=== PATIENT | female | born 1955 | race African-American/Black ===

== ENCOUNTER 2019-03-14 06:55 | Inpatient (IN) | payer MEDICARE, MEDICAID ==
[2019-03-14] MEDS ORDERED: Fentanyl 100 MCG/2 ML VIAL ONE (07:10)
[2019-03-14] MEDS ORDERED: Midazolam HCl 2 mg/2 ml Vial ONE (07:10)
[2019-03-14] MEDS ORDERED: Bivalirudin 250 MG VIAL ONE (07:16)
[2019-03-14] MEDS ORDERED: Clopidogrel Bisulfate 300 MG TAB ONE ×2 (07:21)
[2019-03-14] MEDS ORDERED: Heparin 10,000 UNITS/1 ML VIAL ONE (07:25)
[2019-03-14] MEDS ORDERED: Nitroglycerin 0.4 MG TAB (25 Tab Bottle) SL PRN (08:03)
[2019-03-14] MEDS ORDERED: Milk Of Magnesia 30 ML UDCUP PO PRN (08:03)
[2019-03-14] MEDS ORDERED: cloNIDine 0.1 MG TAB PO PRN (08:03)
[2019-03-14] MEDS ORDERED: Mag-Al 1200 mg/1200 mg/30 ML UDCUP PO PRN (08:03)
[2019-03-14] MEDS ORDERED: Morphine 2 MG/ML SYRINGE SLOW IVP PRN (08:03)
[2019-03-14] MEDS ORDERED: ALPRAZolam 0.25 MG TAB PO PRN (08:05)
[2019-03-14] MEDS ORDERED: Sodium Chloride 0.9% 1,000 ML IV SCH (08:15)
[2019-03-14] MEDS ORDERED: Prevnar 13-Val Conj/PF 0.5 ML SYRINGE IM ONE (09:00)
[2019-03-14 09:02] LABS: Hemoglobin A1c 5.7 % (4.0-6.0)
[2019-03-14 09:14] LABS: Cardiac Risk 5.1 (Less than 4.5)
[2019-03-14] MEDS: Aspirin Chewable 81 MG TAB PO SCH (09:48)
[2019-03-14] MEDS: Clopidogrel Bisulfate 75 MG TAB PO SCH (09:49)
--- NOTE | 2019-03-14 09:58 | HP ---
HISTORY: Maris kearns is a 64-year-old black female without previous cardiac problems. She got up to go the bathroom this morning, at 4 in the morning, and began to have crushing substernal chest pressure associated with nausea and mild diaphoresis, but no shortness of breath or vomiting. She ultimately went to the emergency room in [place] and was found to have changes consistent with inferoposterior myocardial infarction. She was given aspirin, heparin, and transferred. She continues to have chest discomfort. PAST MEDICAL HISTORY: Hypertension and hypercholesterolemia. She denies any history of diabetes. MEDICATIONS: Unknown, but she takes a blood pressure and cholesterol medicine. ALLERGIES: NONE. OPERATIONS: Back surgery. SOCIAL HISTORY: She smokes 5 to 6 cigarettes per day. She does not drink. FAMILY HISTORY: Positive for coronary artery disease. REVIEW OF SYSTEMS: Otherwise unremarkable. PHYSICAL EXAMINATION: VITAL SIGNS: Blood pressure of 130/80, pulse of 88. HEENT: PERRL. NECK: Supple. CHEST: Clear. CARDIAC: S1 and S2 normal without any S3, S4, or murmurs. Carotid upstrokes are normal without bruits. ABDOMEN: Normal bowel sounds without tenderness or organomegaly. EXTREMITIES: Revealed no clubbing, cyanosis, or edema. NEUROLOGIC: Grossly intact. IMAGING STUDIES: EKG findings consistent with inferoposterior infarction. LABORATORY DATA: Lab work from [place] revealed white count of 11,100, hemoglobin 12.9, hematocrit 41.2, platelets 233. Sodium 141, potassium 3.4, chloride 103, carbon dioxide 23, BUN 20, creatinine 1.06, glucose 172. Troponin I 0.033, MB 1.2. It is of note that in December 2017, she had an LDL of 155, cholesterol of 248, and triglycerides of 308. ASSESSMENT: 1. Inferoposterior ST-segment elevation myocardial infarction. 2. Hypertension. 3. Hypercholesterolemia. 4. Elevated blood sugar. 5. Smoker. 6. Positive family history. PLAN: Situation is discussed with the patient. It was recommended that she undergo emergent catheterization. Risks were discussed including , myocardial infarction, dye reaction, vascular injury, CVA, transfusion, limb loss, renal loss, etc. Risks of stent placement were discussed including , myocardial infarction, emergent CABG, restenosis, stent thrombosis, vessel perforation, etc. She has no history of gastrointestinal bleeding or CVA. She does not have any upcoming surgical procedures planned. It is recommended that a drug-eluting stent would be placed if required. Job ID: [id number] MTDD
--- NOTE | 2019-03-14 09:59 | RAD ---
PORTABLE CHEST: HISTORY: Chest pain. COMPARISON: A 03/14/2019 study. FINDINGS: Heart size and mediastinum are within normal limits. The lungs are clear of infiltrates. No signifi cant bony findings. IMPRESSION: No active intrathoracic disease. POS: [facility]
[2019-03-14] MEDS ORDERED: Iopamidol 370 76% 100 ML VIAL ONE (12:37)
[2019-03-14 13:48] LABS: CKMB 164.2 ng/mL (0-6.6)
[2019-03-14 19:27] LABS: CKMB 105.4 ng/mL (0-6.6); Critical Call CKMB RESULT DECREASING
[2019-03-14] MEDS: Atorvastatin Calcium 40 MG TAB PO SCH (20:09)
[2019-03-14] MEDS ORDERED: Atorvastatin Calcium 40 MG TAB PO SCH (21:00)
[2019-03-14] MEDS ORDERED: Ondansetron PF 4 MG/2 ML Vial IVP PRN (22:30)
[2019-03-15 04:06] LABS: CKMB 68.9 ng/mL (0-6.6)
[2019-03-15 04:55] LABS: #Lymphocytes 2.9 thou/uL (1.20-3.40); #Neutrophils 8.4 thou/uL (1.40-6.50); %Basophils 0.2 % (0.0-1.0); %Eosinophils 0.2 % (0.0-10.0); %Lymphocytes 23.6 % (21.0-51.0); %Monocytes 7.9 % (0.0-10.0); %Neutrophils 68.2 % (42.0-75.0); Hemoglobin 11.6 g/dL (12.0-16.0); Mean Corpuscular HGB CONC 32.3 g/dL (32.0-36.0); Mean Corpuscular Hemoglobin 30.2 pg (27.0-31.0); Mean Corpuscular Volume 93.5 fL (78.0-98.0); Mean Platelet Volume 8.8 fL (7.4-10.4); Platelet Count 197 thou/uL (130-400); RBC Distribution Width 12.8 % (11.5-14.5); Red Blood Cell (RBC) Count 3.82 mill/uL (4.20-5.40); White Blood Cell (WBC) Count 12.2 thou/uL (4.8-10.8)
[2019-03-15 05:13] LABS: ALT (SGPT) 36 U/L (8-55); AST (SGOT) 138 U/L (5-34); Albumin 3.9 g/dL (3.4-4.8); Alkaline Phosphatase 96 U/L (40-150); Anion Gap 12 mmol/L (10-20); BUN (Urea Nitrogen) 18 mg/dL (9.8-20.1); Bilirubin, Total 0.6 mg/dL (0.2-1.2); Calc. Creatinine Clearance 106 mL/min (70-130); Calcium 9.4 mg/dL (7.8-10.44); Carbon Dioxide 26 mmol/L (23-31); Chloride 103 mmol/L (98-107); Estimated GFR-MDRD 83; Globulin 2.8 g/dL (2.4-3.5); Glucose 116 mg/dL (80-115); Potassium 3.8 mmol/L (3.5-5.1); Protein, Total 6.7 g/dL (6.0-8.3); Sodium 137 mmol/L (136-145)
[2019-03-15] MEDS: Ezetimibe 10 MG TAB PO SCH (08:13)
[2019-03-15] MEDS: Aspirin Chewable 81 MG TAB PO SCH (08:13)
[2019-03-15] MEDS: Clopidogrel Bisulfate 75 MG TAB PO SCH (08:13)
[2019-03-15] MEDS: Atorvastatin Calcium 40 MG TAB PO SCH (20:47)
[2019-03-15] MEDS: Metoprolol Tartrate 25 MG TAB PO SCH (20:48)
[2019-03-16] MEDS: Clopidogrel Bisulfate 75 MG TAB PO SCH (09:43)
[2019-03-16] MEDS: Metoprolol Tartrate 25 MG TAB PO SCH ×2 (09:43→20:37)
[2019-03-16] MEDS: Ezetimibe 10 MG TAB PO SCH (09:44)
[2019-03-16] MEDS: Aspirin Chewable 81 MG TAB PO SCH (09:44)
--- NOTE | 2019-03-16 11:44 | EKG ---
Test Reason : Blood Pressure : / mmHG Vent. Rate : 082 BPM Atrial Rate : 082 BPM P-R Int : 168 ms QRS Dur : 104 ms QT Int : 396 ms P-R-T Axes : 061 008 -41 degrees QTc Int : 462 ms Normal sinus rhythm Low voltage QRS Abnormal ECG When compared with ECG of 30-OCT-1995 11:10, ST now depressed in Inferior leads ST now depressed in Anterior leads Confirmed by DR. Aly MONTE ([id number]) on 03/16/2019 11:44:23 AM Referred By: PERCY Confirmed By:DR. Aly MONTE
--- NOTE | 2019-03-16 11:49 | EKG ---
Test Reason : ROUTINE Blood Pressure : / mmHG Vent. Rate : 078 BPM Atrial Rate : 078 BPM P-R Int : 138 ms QRS Dur : 088 ms QT Int : 412 ms P-R-T Axes : 019 059 098 degrees QTc Int : 469 ms Normal sinus rhythm Low voltage QRS Abnormal ECG Confirmed by DR. Aly MONTE (3) on 03/16/2019 11:49:05 AM Referred By: SELMA GREER Confirmed By:DR. Aly MONTE
[2019-03-16 14:27] VITALS: BMI 36.3
[2019-03-16] MEDS: Atorvastatin Calcium 40 MG TAB PO SCH (20:37)
[2019-03-17 07:29] VITALS: BP 124/77; TEMP 98.5
[2019-03-17] MEDS: Clopidogrel Bisulfate 75 MG TAB PO SCH (09:18)
[2019-03-17] MEDS: Ezetimibe 10 MG TAB PO SCH (09:18)
[2019-03-17] MEDS: Aspirin Chewable 81 MG TAB PO SCH (09:19)
--- NOTE | 2019-03-17 11:11 | DIS ---
DATE OF ADMISSION: 03/14/2019 DATE OF DISCHARGE: 03/17/2019 DISCHARGE DIAGNOSES: 1. Inferoposterior ST-segment elevation myocardial infarction with troponin I of 124.473, MB 164.2. 2. Placement of drug-eluting stent in the proximal circumflex. 3. Three-vessel coronary artery disease for medical treatment. 4. Ejection fraction of 40% to 45%, consider repeat echo in 3 months. 5. Hypertension. 6. Hypercholesterolemia. 7. Smoker. 8. Positive family history. DISCHARGE MEDICATIONS: 1. Ecotrin 81 mg q.a.m. 2. Plavix 75 mg q.a.m. x1 year. 3. Atorvastatin 80 mg daily. 4. Zetia 10 mg daily. 5. Metoprolol ER 25 mg q.a.m. 6. Nitroglycerin p.r.n. DISCHARGE DISPOSITION: The patient to be seen in one month with complete metabolic panel and fasting lipid profile being obtained. She was instructed on a daily basis that she should never smoke again or use any nicotine and also was instructed a low-cholesterol diet. HOSPITAL COURSE: Ms. Nunn awoke on the morning of admission 4 a.m. to go the bathroom and began to have crushing substernal chest pressure associated with nausea and mild diaphoresis. She went to the emergency room in [place], was found to have changes consistent with inferoposterior STEMI. She was transferred here and taken to the manager cath lab emergently. This revealed 50% proximal LAD, 50% distal LAD, total occlusion of the proximal circumflex and 50% mid RCA lesion. She underwent placement of Synergy drug-eluting stent 3.0 x 20 mm stent in the proximal circumflex. The distal portion of the stent was post dilated with a 3.5 mm balloon. Her cholesterol is 184, triglycerides 82, HDL 36, LDL 132. She was on atorvastatin 40 mg daily, however, it sounds as if she was fairly noncompliant with that medication. At the time of discharge, she was walking 240 feet in the jo. Job ID: [id number]
== END 2019-03-17 12:28 | disposition home or self-care (01) | DRG 247 ==
LOC: ERS 06:55 → CCL 07:04 → 2NO 07:30 → CCU 08:02 → 2NO 03-15 16:43
PROVIDERS: ADMIT Internal Medicine Cardiovascular Disease; ATTEND Internal Medicine Cardiovascular Disease
PROC: 027034Z Dilation of Coronary Artery, One Artery with Drug-eluting Intraluminal Device, Percutaneous Approach (ICD-10-PCS; principal; 2019-03-14)
PROC: 4A023N7 Measurement of Cardiac Sampling and Pressure, Left Heart, Percutaneous Approach (ICD-10-PCS; 2019-03-14)
PROC: B2111ZZ Fluoroscopy of Multiple Coronary Arteries using Low Osmolar Contrast (ICD-10-PCS; 2019-03-14)
DX: I21.11 ST elevation (STEMI) myocardial infarction involving right coronary artery (principal); I10 Essential (primary) hypertension; E78.00 Pure hypercholesterolemia, unspecified; I25.10 Atherosclerotic heart disease of native coronary artery without angina pectoris; F17.210 Nicotine dependence, cigarettes, uncomplicated
CPT/HCPCS: 36415; 71045; 80053; 80061; 82553; 83036; 85025; 85347; 90471; 90670; 92941; 93005; 93010; 93306; 93458; 93798; 99152; 99153; C1725; C1769; C1874; C1887; C9606; G0009; J0583; J1644; J2250; J2405; J3010; Q9967